=== PATIENT | male | born 2000 | race Hispanic/Latino ===

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

== ENCOUNTER 2018-07-10 12:10 | Emergency (ER) | payer BC, OTHER ==
[2018-07-10] MEDS ORDERED: ACETAMINOPHEN 325 MG TAB ONE (13:01)
[2018-07-10 13:35] LABS: RAPID GROUP A STREP NEGATIVE (NEGATIVE)
== END 2018-07-10 14:20 | disposition home or self-care (01) ==
LOC: EDH 12:10
DX: J10.1 Influenza due to other identified influenza virus with other respiratory manifestations (principal)
CPT/HCPCS: 71046; 87804; 87880

== ENCOUNTER 2018-12-19 13:59 | Emergency (ER) | payer BC ==
[2018-12-19] MEDS ORDERED: ONDANSETRON HCL 4 MG/2 ML VIAL ONE (14:20)
[2018-12-19] MEDS ORDERED: SODIUM CHLORIDE 0.9% 1000ML 1,000 ML IV ONE (14:22)
[2018-12-19 14:35] LABS: BASOPHILS % (AUTO) 0.5 % (0.0-5.0); EOSINOPHILS % (AUTO) 1.9 % (0.0-8.0); HEMATOCRIT 42.5 % (42-54); LYMPHOCYTES % (AUTO) 14.7 % (21.0-51.0); MEAN CORPUSCULAR HGB CONC 35.2 g/dL (32.0-36.0); MEAN CORPUSCULAR VOLUME 90.8 fL (80-100); MONOCYTES % (AUTO) 9.2 % (3.0-13.0); NEUTROPHILS % (AUTO) 73.7 % (40.0-77.0); NUCLEATED RED BLOOD CELLS 0.1 % (0.0-0.19); PLATELET COUNT (AUTO) 198 K/uL (130-400); RED BLOOD CELL COUNT(AUTO) 4.68 MIL/uL (4.50-6.20); RED CELL DISTRIBUTION WIDTH 12.4 % (11.0-15.5); WHITE BLOOD COUNT (AUTO) 8.8 K/uL (4.8-10.8)
[2018-12-19 14:41] LABS: RAPID GROUP A STREP NEGATIVE (NEGATIVE)
[2018-12-19 14:49] LABS: CREATININE 0.8 mg/dL (0.5-1.5); POTASSIUM 3.8 mmol/L (3.5-5.1)
[2018-12-19 14:54] LABS: BILIRUBIN,TOTAL 0.4 mg/dL (0.2-1.0); TOTAL PROTEIN, SERUM 7.9 g/dL (6.0-8.3)
[2018-12-19 14:55] LABS: INR 1.02 (0.85-1.15); PARTIAL THROMBOPLASTIN TIME 25.7 SEC (26.3-35.5); PROTHROMBIN TIME 10.7 SEC (9.6-11.6)
[2018-12-19] MEDS ORDERED: DIVALPROEX SODIUM 250 MG TABLET.DR PO ONE (15:44)
== END 2018-12-19 15:57 | disposition home or self-care (01) ==
LOC: EDH 13:59
DX: S01.512A Laceration without foreign body of oral cavity, initial encounter (principal); G40.909 Epilepsy, unspecified, not intractable, without status epilepticus; R11.2 Nausea with vomiting, unspecified; R79.89 Other specified abnormal findings of blood chemistry; R79.1 Abnormal coagulation profile; G43.909 Migraine, unspecified, not intractable, without status migrainosus; Z79.899 Other long term (current) drug therapy; X58.XXXA Exposure to other specified factors, initial encounter; Y93.89 Activity, other specified; Y92.89 Other specified places as the place of occurrence of the external cause; Y99.8 Other external cause status
CPT/HCPCS: 36415; 80053; 80164; 82550; 84484; 85025; 85610; 85730; 87804 ×2; 87880; 93005; 96361; 96374; 99285; J2405; J7030

== ENCOUNTER 2019-02-07 05:24 | Emergency (ER) | payer BC ==
[2019-02-07] MEDS ORDERED: ACETAMINOPHEN EXTRA STRENGTH 500 MG TABLET ONE (05:36)
[2019-02-07 05:47] LABS: RAPID GROUP A STREP NEGATIVE (NEGATIVE)
[2019-02-07] MEDS ORDERED: ONDANSETRON ODT 4 MG TAB ONE (06:03)
[2019-02-07] MEDS ORDERED: IBUPROFEN 200 MG TAB ONE (06:03)
== END 2019-02-07 07:04 | disposition home or self-care (01) ==
LOC: EDH 05:24
DX: J02.9 Acute pharyngitis, unspecified (principal); R11.2 Nausea with vomiting, unspecified; R50.9 Fever, unspecified; Z72.0 Tobacco use
CPT/HCPCS: 87804; 87880